=== PATIENT | male | born 1970 | race Caucasian/White ===

== ENCOUNTER 2021-11-01 22:49 | Emergency (ER) | payer OTHER ==
[2021-11-01 23:30] LABS: TROPONIN I HIGH SENSITIVITY 8.9 pg/mL (<=60.3)
[2021-11-01] MEDS: Sodium Chloride 0.9% 1,000 ML IV SCH (23:49)
[2021-11-01] MEDS: Ketorolac 30 MG/ML SDV IVPUSH ONE (23:50)
[2021-11-01] MEDS: Sodium Chloride 0.9% 10 ML Syringe FLUSH PRN (23:51)
[2021-11-02 00:22] LABS: ESTIMATED GFR 73 mL/min (>60)
[2021-11-02] MEDS: Sodium Chloride 0.9% 1,000 ML IV SCH (00:51)
[2021-11-02] MEDS: Dexamethasone 4 MG/ML SDV IVPUSH ONE (00:52)
[2021-11-02] MEDS: Potassium Chloride 20 MEQ Tab.ER PO ONE (00:52)
[2021-11-02] MEDS: Prochlorperazine 10 MG/2 ML SDV IVPUSH ONE (00:53)
== END 2021-11-02 02:18 | disposition home or self-care (01) ==
LOC: JP.ED 22:49
DX: G43.109 Migraine with aura, not intractable, without status migrainosus (principal); I95.1 Orthostatic hypotension; E86.0 Dehydration; E87.6 Hypokalemia; R06.02 Shortness of breath; Z79.82 Long term (current) use of aspirin; Z79.01 Long term (current) use of anticoagulants; Z20.822 Contact with and (suspected) exposure to COVID-19
CPT/HCPCS: 36415; 71046; 80053; 83605; 83880; 84145; 84484; 85025; 85379; 86140; 87635; 93005; 93010; 96361; 96374; 96375; 99282; 99285; A9270; J0780; J1100; J1885; J3490; J7030; U0002